=== PATIENT | male | born 1945 | race Caucasian/White ===

== ENCOUNTER 2017-06-20 07:25 | Emergency (ER) | payer MEDICARE ==
--- NOTE | ~2017-06-20 | CT23 ---
[facility] A Service of [facility] & [facility] RADIOLOGY TEXT RESULTS PATIENT: YAMIL CONTEH LOCATION: [facility] : [birth year] UNIT #: [id number] AGE: [address]: Kristen Alvarez MD SEX: M ORDER DR: [id number] [facility] [address] [facility]. [place], [place] [address] [id number] P MR#: [id number] Acc #: [id number] NAME: YAMIL CONTEH : 1945 SEX: M STUDY DATE/TIME: 06/20/2017 7:50 UNIT: [facility] ROOM: STUDY DESCRIPTION: CT Angio Neck Attending Physician: Kristen Alvarez M.D. Ordering Physician: Kristen Alvarez M.D. MEDICAL IMAGING REPORT This report is preliminary unless electronic signature is present EXAM CT angiogram of the neck FINDINGS Please see CT angiogram of the head for results. STAT * RESULT Dictated by... Tao Jj M.D. THIS IS AN ELECTRONICALLY VERIFIED REPORT Tao Jj M.D. at 06/20/2017 10:51 AM CLEMENT/karin TD: 06/20/2017 08:50 JOB #: [id number] MEDICAL IMAGING REPORT Page 1 of 1 COPY
--- NOTE | ~2017-06-20 | EKG ---
PATIENT: YAMIL CONTEH UNIT #: [id number] Ventricular Rate: 57 BPM Atrial Rate: 57 BPM P-R Interval: 206 ms QRS Duration: 114 ms Q-T Interval: 442 ms QTC Calculation(Bezet): 430 ms P [place]: 50 degrees Calculated R [place]: 4 degrees Calculated T [place]: 95 degrees Diagnosis Line: Sinus bradycardia with occasional Premature Diagnosis Line: ventricular complexes Diagnosis Line: Inferior infarct , age undetermined Diagnosis Line: Abnormal ECG Diagnosis Line: No previous ECGs available Diagnosis Line: Confirmed by GAEL TRAVIS MD ([id number]) on 06/23/2017 Diagnosis Line: 6:55:37 AM INTERPRETING MD: ANGY ALANIZ
--- NOTE | ~2017-06-20 | CR72 ---
[facility] A Service of [facility] / [facility] RADIOLOGY TEXT RESULTS PATIENT: YAMIL CONTEH LOCATION: [facility] : 47 UNIT #: [id number] AGE: [address]: Kristen Alvarez MD SEX: M ORDER DR: [id number] [id number] [facility]. [place], [place] [address] [id number] E MR#: [id number] Acc #: [id number] NAME: YAMIL CONTEH : 1945 SEX: M STUDY DATE/TIME: 06/20/2017 8:08 UNIT: [facility] ROOM: STUDY DESCRIPTION: CR Chest Single View Portable Attending Physician: Kristen Alvarez M.D. Ordering Physician: Kristen Alvarez M.D. Primary Care Physician: Primary Care Physician No MEDICAL IMAGING REPORT This report is preliminary unless electronic signature is present EXAM Portable chest INDICATION Right-sided facial drooping and suspected stroke. Weakness since 5 a.m. Stroke protocol chest x-ray. COMPARISON None. FINDINGS A portable view of the chest was obtained. The heart size and vascularity are normal. The lungs are clear. The bones are normal. IMPRESSION No active disease. Dictated by... Tao Jj M.D. THIS IS AN ELECTRONICALLY VERIFIED REPORT Tao Jj M.D. at 06/20/2017 10:51 AM CLEMENT/karin TD: 06/20/2017 10:12 JOB #: [id number] [facility] A Service of [facility] / [facility] RADIOLOGY TEXT RESULTS PATIENT: YAMIL CONTEH LOCATION: [facility] : 46 UNIT #: [id number] AGE: [address]: Kristen Alvarez MD SEX: M ORDER DR: MEDICAL IMAGING REPORT Page 1 of 1 COPY
--- NOTE | ~2017-06-20 | CT17 ---
[facility] A Service of [facility] & [facility] RADIOLOGY TEXT RESULTS PATIENT: YAMIL CONTEH LOCATION: [facility] : 47 UNIT #: [id number] AGE: [address]: Kristen Alvarez MD SEX: M ORDER DR: [id number] [facility] [address] [place], [place] [address] [id number] P MR#: [id number] Acc #: [id number] NAME: YAMIL CONTEH : 1945 SEX: M STUDY DATE/TIME: 06/20/2017 7:50 UNIT: [facility] ROOM: STUDY DESCRIPTION: CT Angio Head Attending Physician: Kristen Alvarez M.D. Ordering Physician: Kristen Alvarez M.D. MEDICAL IMAGING REPORT This report is preliminary unless electronic signature is present EXAM CT scan of the head and neck with angiographic reconstructions INDICATION Right-sided weakness starting at 5 a.m. TECHNIQUE The patient was given 100 mL of Isovue 370 and spiral imaging was performed from the aortic arch through the brain. 3-D reconstructions of the arterial structures were generated. NASCET criteria was utilized. This CT examination was performed with one or more of the following radiation dose reduction techniques: automatic exposure control, adjustment of mA and/or kV according to patient size, and iterative reconstruction. FINDINGS The lung apices are clear. The thyroid gland is normal. The submandibular and parotid glands are normal. No neck masses are identified. The ventricles and subarachnoid spaces are normal. There are no masses or extraaxial fluid collections. VASCULAR: The great vessels are all patent. The left vertebral artery arises directly from the aortic arch. The right vertebral artery arises from the subclavian artery. Opacification of the arterial structures is not optimal but it is adequate. The vertebral arteries are both patent and equal in size. They unite to form the basilar artery. The right common carotid artery is patent without significant stenosis. There is some calcified and noncalcified plaque in the carotid bifurcation and proximal internal carotid artery but there is no significant stenosis. The left common carotid artery is patent up to the bifurcation and there is extensive noncalcified plaque formation causing a high-grade stenosis of at least 90%. There is some intraluminal thrombus seen within about a 4 mm long segment of the proximal internal carotid artery. The internal [facility] A Service of [facility] RADIOLOGY TEXT RESULTS PATIENT: YAMIL CONTEH LOCATION: [facility] : 47 UNIT #: [id number] AGE: [address]: Kristen Alvarez MD SEX: M ORDER DR: carotid artery is patent however and there is flow seen up into the brain. The middle and anterior cerebral arteries are patent and normal in appearance. There is a posterior communicating artery on the right and there is an anterior communicating artery. There is asymmetry in the more distal branches of the MCA with a much greater number of vessels visible on the right than on the left. 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 IMPRESSION 1. 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 2. The images of the brain vasculature show asymmetry in the middle cerebral artery territory distal branches with fewer branches visible on the left than on the right. I believe that the anterior circulation has been compromised. I cannot see a specific cutoff or intraluminal filling defect. Certainly, the M1 and M2 segments of middle cerebral artery are patent. 3. No significant stenosis noted in the right system or in the vertebral or basilar system. 4. The results have been discussed with Dr. Alvarez. STAT * RESULT Dictated by... Tao Jj M.D. THIS IS AN ELECTRONICALLY VERIFIED REPORT Tao Jj M.D. at 06/20/2017 10:51 AM CLEMENT/karin TD: 06/20/2017 08:49 JOB #: [id number] MEDICAL IMAGING REPORT Page 1 of 1 COPY
--- NOTE | ~2017-06-20 | CT71 ---
[facility] A Service of [facility] RADIOLOGY TEXT RESULTS PATIENT: YAMIL CONTEH LOCATION: [facility] : 46 UNIT #: [id number] AGE: [address]: Kristen Alvarez MD SEX: M ORDER DR: [id number] [id number] [facility]. [place], [place] [address] [id number] E MR#: [id number] Acc #: [id number] NAME: YAMIL CONTEH : 1945 SEX: M STUDY DATE/TIME: 06/20/2017 7:33 UNIT: [facility] ROOM: STUDY DESCRIPTION: CT Head Wo Contrast Attending Physician: Kristen Alvarez M.D. Ordering Physician: rKisten Alvarez M.D. Primary Care Physician: Primary Care Physician No MEDICAL IMAGING REPORT This report is preliminary unless electronic signature is present EXAM CT scan of the brain without contrast INDICATION Right side weakness starting this morning at 5 a.m. FINDINGS Unenhanced images were obtained through the brain. This CT examination was performed with one or more of the following radiation dose reduction techniques: automatic exposure control, adjustment of mA and/or kV according to patient size, and iterative reconstruction. The ventricles and subarachnoid spaces are normal for age. There are no masses, extraaxial fluid collections or hemorrhage. IMPRESSION Normal unenhanced head CT scan. FINDINGS Dictated by... Tao Jj M.D. THIS IS AN ELECTRONICALLY VERIFIED REPORT Tao Jj M.D. at 06/20/2017 10:51 AM CLEMENT/mjs [facility] A Service of [facility] RADIOLOGY TEXT RESULTS PATIENT: YAMIL CONTEH LOCATION: [facility] : 47 UNIT #: [id number] AGE: [address]: Kristen Alvarez MD SEX: M ORDER DR: TD: 06/20/2017 09:52 JOB #: [id number] MEDICAL IMAGING REPORT Page 1 of 1 COPY
[2017-06-20 07:51] LABS: BASOPHIL# 0.1 X10e3 (0-0.3); BASOPHIL% 0.9 % (0-2.5); EOSINOPHIL# 0.2 X10e3 (0-0.7); EOSINOPHIL% 2.2 % (0.0-7.0); HEMATOCRIT 50.4 % (38.0-50.0); LYMPHOCYTE# 1.6 X10e3 (1.0-3.5); MEAN CELL VOLUME 94.1 FL (83-96); MEAN CORPUSCULAR HEMOGLOBIN 31.8 PG (28-34); MEAN CORPUSCULAR HGB CONC 33.8 g/dL (30-36); MEAN PLATELET VOLUME 10.9 FL (6.5-11.5); MONOCYTE# 0.6 X10e3 (0-1.0); MONOCYTE% 6.6 % (3.0-12.0); NEUTROPHIL% 71.3 % (40-75); PLATELET COUNT 139 X10e3 (140-420); RED BLOOD COUNT 5.36 X10e (3.90-5.60); RED CELL DISTRIBUTION WIDTH 15.4 % (11.0-15.5); WHITE BLOOD COUNT 8.5 X10e3 (4.0-10.5)
[2017-06-20 07:52] LABS: DIFF IND NO
[2017-06-20 08:04] LABS: INR 1.1; PARTIAL THROMBOPLASTIN TIME 26.7 SECONDS (23.5-31.3); PROTHROMBIN TIME (PATIENT) 11.6 SECONDS (10.0-11.7)
[2017-06-20 08:15] LABS: POC - CREATININE 1.27 mg/dL (0.64-1.27)
[2017-06-20] MEDS ORDERED: HCTZ/LISINOPRIL (08:28)
[2017-06-20] MEDS ORDERED: NEURONTIN300 MG PO (08:28)
[2017-06-20 09:06] LABS: ALBUMIN SERUM 3.6 g/dL (3.5-5.0); BILIRUBIN, DIRECT 0.1 mg/dL (0.0-0.2); BILIRUBIN,INDIRECT 0.1 mg/dL (0.0-0.9); BILIRUBIN,TOTAL 0.2 mg/dL (0.2-2.0); BUN/CREATININE RATIO 19.09; CALCIUM SERUM 8.4 mg/dL (8.4-10.2); CREATININE SERUM 1.1 mg/dL (0.6-1.4); GLOM FILT RATE Estimated 67.2 mL/min (>60); POTASSIUM 3.9 mmol/L (3.5-5.1); PROTEIN TOTAL SERUM 6.7 g/dL (6.0-8.3)
[2017-06-20 09:35] LABS: POC - CKMB <1.0 ng/mL (0.0-7.9); POC - TROPONIN <0.05 ng/mL (<=0.05)
[2017-06-20 09:46] LABS: %MB 3.7 % (0.0-4.0); MB 2.2 ng/ml
== END 2017-06-20 09:25 | disposition short-term general hospital (02) ==
LOC: CED 07:25
PROVIDERS: Emergency Medicine
DX: I63.312 Cerebral infarction due to thrombosis of left middle cerebral artery (principal); R29.710 NIHSS score 10; I25.2 Old myocardial infarction
CPT/HCPCS: 36415; 51702; 70450; 70496; 70498; 71010; 80048; 80076; 82550; 82553; 82565; 82947; 84484; 85025; 85610; 85730; 93005; 96365; 99291; G0480; J0360; J2997; Q9967